=== PATIENT | female | born 1960 | race Caucasian/White ===

== ENCOUNTER 2016-12-21 18:48 | Emergency (ER) | payer OTHER ==
[~2016-12-21] VITALS: Ht 162.6 cm; Wt 63.5 kg
[2016-12-21] MEDS ORDERED: AMPYRA10 MG PO (20:21)
[2016-12-21] MEDS ORDERED: GILENYA0.5 MG PO (20:21)
[2016-12-21] MEDS ORDERED: GABAPENTIN100 MG PO (20:22)
[2016-12-21] MEDS ORDERED: CARBAMAZEPINE100 M2 PO (20:22)
[2016-12-21] MEDS ORDERED: COLACE100 MG PO (22:42)
[2016-12-21] MEDS ORDERED: NORCO 5-325 TA1 EACH PO (22:42)
[2016-12-21] MEDS ORDERED: ZOFRAN ODT4 MG PO (22:42)
[2016-12-21 23:05] VITALS: BP 142/82
[2016-12-24] MEDS ORDERED: COLACE100 MG PO (14:23)
[2016-12-24] MEDS ORDERED: VITAMIN D5000 UNI1 PO (14:23)
== END 2016-12-21 23:06 | disposition home or self-care (01) ==
LOC: ER 18:48
DX: S52.591A Other fractures of lower end of right radius, initial encounter for closed fracture (principal); G35 Multiple sclerosis; W18.39XA Other fall on same level, initial encounter; Y93.89 Activity, other specified; Y92.89 Other specified places as the place of occurrence of the external cause; Y99.8 Other external cause status

== ENCOUNTER 2016-12-25 05:40 | Day surgery (SDC) | payer OTHER ==
[~2016-12-25] VITALS: Ht 162.6 cm; Wt 71.7 kg
--- NOTE | ~2016-12-25 | O ---
[facility] [place] [address] OPERATIVE REPORT Name: PAUL LOERA Room #: 150-10 [facility] M.R.#: [id number] Admission: 12/25/16 Attend Phys: Eugenio Wang MD Discharge: Date of : 58 Report #: [id number] THIS REPORT FOR: //name// CC: Mario Wang DATE OF SERVICE: 12/25/2016 PREOPERATIVE DIAGNOSIS: Right wrist distal radius fracture. POSTOPERATIVE DIAGNOSIS: Right wrist distal radius fracture. PROCEDURE: Right wrist open reduction and internal fixation. SURGEON: Eugenio Wang MD. COW TESTER: Jim Moreno, nurse practitioner. INDICATIONS FOR COW TESTER: During the course of operation, extensive manipulation, retraction, and limb positioning was required. This was afforded to me by my assistant professor of archaeology. ANESTHETIC: General. INDICATIONS: See hospital H and P revisions, 12/25/2016. DESCRIPTION OF PROCEDURE: After adequate general anesthesia had been obtained, the patient's right upper extremity was prepped and draped in the usual meticulous sterile fashion. Limb was exsanguinated with an Esmarch bandage and tourniquet inflated to 250 torr. A linear incision was made over the volar aspect of the wrist. Subq divided using gentle spreading technique. The flexor carpi radialis tendon sheath was divided. This tendon was retracted radially. We then mobilized the interval between and FPL, and then elevated the pronator quadratus off of the distal radial. Fracture was very comminuted, and there was one fragment that was not salvageable, that was removed. We then reduced the fracture and pinned it into position. An Acumed plate was put into position. We placed the sliding screw hole, to secure it in position. We checked in 2 planes and found it to be in good position. We then placed 5 distal locking, fully threaded screws to the distal fragment, 3 distally and 2 through the styloid holes, and then one additional screw proximally. Entire construct was checked in 2 planes and found to be in good position. The wound was then irrigated copiously. Subq was closed with 2-0 Monocryl. Skin closed [facility] [address] [place] [address] OPERATIVE REPORT Name: PAUL LOERA Room #: 150-10 [facility]..#: [id number] Admission: 12/25/16 Attend Phys: Eugenio Wang MD Discharge: Date of : 58 Report #: [id number] with a running subcuticular 2-0 Prolene. Steri-Strips were applied. Sterile compressive dressing and splint was applied. Tourniquet was deflated. By: 1456 [id number] Eugenio Wang MD /cinthya
[~2016-12-25 05:40] MED LIST: AMPYRA10 MG PO; CARBAMAZEPINE100 M2 PO; COLACE100 MG PO; GABAPENTIN100 MG PO; GILENYA0.5 MG PO; NORCO 5-325 TA1 EACH PO; VITAMIN D5000 UNI1 PO; ZOFRAN ODT4 MG PO
[2016-12-25 12:30] VITALS: BP 162/91
[2016-12-25] MEDS ORDERED: NORCO 5-325 TA1 EACH PO (14:48)
[2016-12-25] MEDS ORDERED: COLACE100 MG PO (14:48)
[2016-12-25 15:54] VITALS: BP 162/91
== END 2016-12-25 16:20 | disposition home or self-care (01) ==
LOC: OR 05:40 → TBA 05:40 → OR 12:59
DX: S52.591A Other fractures of lower end of right radius, initial encounter for closed fracture (principal); X58.XXXA Exposure to other specified factors, initial encounter; Y93.89 Activity, other specified; Y92.89 Other specified places as the place of occurrence of the external cause; Y99.8 Other external cause status; Z87.891 Personal history of nicotine dependence; G47.33 Obstructive sleep apnea (adult) (pediatric); G35 Multiple sclerosis
CPT/HCPCS: 50010; 50101; 50386; 51736; 55430; 56525; 56528; 57091; 62110; 62900; 70005